=== PATIENT | female | born 1995 | race Asian ===

== ENCOUNTER 2017-01-01 05:36 | Emergency (ER) | payer OTHER ==
[~2017-01-01] VITALS: Ht 162.6 cm; Wt 48.3 kg
[2017-01-01 05:43] VITALS: TEMP 36.5; Ht 162.6 cm; Wt 48.3 kg
[2017-01-01] MEDS ORDERED: ONDANSETRON 4MG OD TAB ONE (05:50)
[2017-01-01] MEDS ORDERED: BCPILLS PO (05:56)
[2017-01-01] MEDS ORDERED: ONDANSETRON 4MG OD TAB PO ONE (06:00)
[2017-01-01 06:29] LABS: BLOOD UREA NITROGEN 14 mg/dl (7-18); BUN/CREATININE RATIO 22.6 (10-20); CALCIUM 8.6 mg/dl (8.5-10.1); CARBON DIOXIDE 19 mmol/L (21-32); CHLORIDE 111 mmol/L (98-107); CREATININE 0.63 mg/dl (0.60-1.20); GLUCOSE 132 mg/dl (70-99); SODIUM 143 mmol/L (136-145)
[2017-01-01] MEDS ORDERED: POTASSIUM CHLORIDE 10 MEQ TABCR PO STA (06:31)
--- NOTE | 2017-01-01 06:31 | EMERGENCY ROOM VISIT NOTE ---
History Report prepared by Sudhakar: Eusebia Yap Under the Supervision of: Dr. Janeen Jane D.O. 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 The patient was out drinking with her friends nella at [employer]. Her friend states that she drank too much and they brought her back to her dorm. They were taking care of her when she had some vomit that had some black substance in it which looked like wine, but smelled like blood. They brought her to the ED. She has never vomited blood before. She stopped drinking around 1 hour ago. She complains of nausea. She denies any abdominal pain. She denies any other drug use. She does smoke. She is a student. She does not have any medical problems. The history is limited due to the patient's intoxication. 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 A total of 10 systems reviewed and were otherwise negative. Past Medical & Surgical Medical Problems: (1) No Known Active Medical Problems Family History No pertinent family history stated. Social History Occupation Status: [employer] student Current/Historical Medications Scheduled Control Pills ( Control Pills), 1 TAB PO DAILY Allergies Coded Allergies: No Known Allergies (Unverified , 01/01/17) Physical Exam Vital Signs Date Time Temp Pulse Resp B/P (MAP) Pulse Ox O2 Delivery O2 Flow Rate FiO2 01/01/17 05:47 112 01/01/17 05:43 36.5 108 20 102/78 100 Room Air Physical Exam General: Smells of alcohol and vomit, moaning in discomfort. HEENT: Head - normocephalic and atraumatic Pupils are 6mm and sluggishly reactive to light. Extraocular eye muscles are intact, and sclera are anicteric. Nose - moist nasal mucosa without discharge. Mouth - moist buccal mucosa. Oropharynx is nonerythematous and there is no tonsillar exudate or edema noted. Neck: Supple; no JVD, nuchal rigidity, cervical lymphadenopathy. Heart: Tachycardic rate and regular rhythm. There is a normal S1 and S2 with no murmurs, clicks, or gallops appreciated. Lungs: Clear to auscultation bilaterally with no wheezes, rales, or rhonchi. Abdomen: Soft, completely nontender, nondistended, with good bowel sounds. There are no palpable pulsatile masses or hepatosplenomegaly. There is no guarding, rigidity, or rebound noted. Extremities: No evidence of cyanosis, clubbing, or edema. There are easily palpable peripheral pulses. Skin: cold and dry with good turgor and no rashes. Medical Decision & Procedures Laboratory Results 01/01/17 05:58 Test 01/01/17 05:58 Anion Gap 13.0 mmol/L (3-11) Est Creatinine Clear Calc Drug Dose 109.5 ml/min Estimated GFR () > 150.0 Estimated GFR (Non- 130.0 BUN/Creatinine Ratio 22.6 (10-20) Calcium Level 8.6 mg/dl (8.5-10.1) Ethyl Alcohol mg/dL 183.5 mg/dl (0-3) Laboratory results per my review. Medications Administered Medications (Trade) Dose Ordered Sig/Kristyn Route Start Time Stop Time Status Last Admin Dose Admin Ondansetron HCl (Zofran Odt) 4 mg ONE ONCE PO 01/01/17 06:00 01/01/17 06:01 DC 01/01/17 05:53 4 MG Procedure Medications: Zofran Odt 4 mg PO. ED Course 0544: The patient was evaluated in room B4B. A complete history and physical examination were performed. Nursing notes and previous electronic medical records were reviewed. Labs were drawn as above. The patient was placed in the prone position to avoid aspiration. The patient was observed on the video conference specialist and pulse oximeter. 0550: The patient continued to dry heave. She was given Zofran Odt 4 mg PO. 0622: I reevaluated the patient. Her vitals are stable. I discussed the laboratory results with the patient's friends so they knew when she would be sober for discharge. 0630: The patient was signed out to Dr. Caputo at the end of my shift. She will be administered oral potassium when she is more awake. Medical Decision The patient is a 21 year old female who presents to the ED with alcohol intoxication. Differential diagnosis includes alcohol overdose, drug intoxication, gastritis, upper GI bleeding. Labs: alcohol 183, potassium 3, normal renal function, glucose 132 This is a 21-year-old female patient who consumed much alcohol tonight and presented to the emergency department vomiting. Friends are concerned because they felt that she was vomiting blood at home. The patient no further vomiting or here in the emergency department. She remained hemodynamically stable. Medication Reconcilliation Current Medication List: was personally reviewed by me Blood Pressure Screening Patient's blood pressure: Normal blood pressure Blood pressure disposition: Did not require urgent referral Impression Primary Impression: Alcohol overdose Additional Impression: Hypokalemia Scribe Attestation The scribe's documentation has been prepared under my direction and personally reviewed by me in its entirety. I confirm that the note above accurately reflects all work, treatment, procedures, and medical decision making performed by me. Departure Information Dispostion Still a Patient Referrals No Doctor, Assigned (PCP) Patient Instructions My [facility] Problem Qualifiers Primary Impression: Alcohol overdose Encounter type: initial encounter Injury intent: accidental or unintentional Qualified Codes: T51.91XA - Toxic effect of unspecified alcohol , accidental (unintentional), initial encounter
[2017-01-01] MEDS ORDERED: POTASSIUM CHLORIDE 10 MEQ TABCR ONE (08:57)
[2017-01-01 09:15] VITALS: BP 103/59; PULSE 105; O2SAT 98
--- NOTE | 2017-01-01 14:29 | EMERGENCY ROOM VISIT NOTE ---
ED Visit Note First contact with patient: 07:35 I received this patient in signout the change of shift from Dr. Jane. Patient was observed in the emergency department until she reached a more sober state. She was discharged to the care of friends. Please see Dr. Jane's notes for further details.
== END 2017-01-01 09:15 | disposition home or self-care (01) ==
LOC: C.EDB 05:37
DX: F10.129 Alcohol abuse with intoxication, unspecified (principal); E87.6 Hypokalemia; R11.2 Nausea with vomiting, unspecified; F17.210 Nicotine dependence, cigarettes, uncomplicated